=== PATIENT | female | born 1980 | race Caucasian/White ===

== ENCOUNTER 2024-02-11 07:48 | Emergency (ER) | payer OTHER ==
[2024-02-11] MEDS: HYDROmorphone 1 MG/ML Syringe IVPUSH ONE (08:51)
[2024-02-11] MEDS: Sodium Chloride 0.9% 1,000 ML IV SCH (08:51)
[2024-02-11] MEDS: Sodium Chloride 0.9% 10 ML Syringe FLUSH PRN ×2 (08:52→09:33)
[2024-02-11] MEDS: Sodium Chloride 0.9% 80 ML IV ONE (09:33)
[2024-02-11] MEDS: Iopamidol 612 MG/ML 100 ML Bottle IV PRN (09:34)
[2024-02-11] MEDS: Ketorolac 30 MG/ML SDV IVPUSH ONE (10:32)
== END 2024-02-11 12:17 | disposition home or self-care (01) ==
LOC: JP.ED 07:48
DX: S46.912A Strain of unspecified muscle, fascia and tendon at shoulder and upper arm level, left arm, initial encounter (principal); Z90.49 Acquired absence of other specified parts of digestive tract; Z79.899 Other long term (current) drug therapy; W10.9XXA Fall (on) (from) unspecified stairs and steps, initial encounter
CPT/HCPCS: 70450; 70486; 71260; 72125; 73000-LT; 76377; 96374; 96375; 99284-25; J1171; J1885; J3490; J7030; Q9967

== ENCOUNTER 2024-12-30 12:05 | Emergency (ER) | payer OTHER | END 2024-12-30 16:22 | disposition home or self-care (01) | LOC: JP.ED 12:05 | DX: S99.921A Unspecified injury of right foot, initial encounter (principal); Z79.899 Other long term (current) drug therapy; Z90.49 Acquired absence of other specified parts of digestive tract; W19.XXXA Unspecified fall, initial encounter | CPT/HCPCS: 73610; 73700; 76377; 96372; 99284; J1171 ==